=== PATIENT | female | born 1985 | race Caucasian/White ===

== ENCOUNTER 2017-07-07 01:43 | Emergency (ER) | payer OTHER ==
--- NOTE | 2017-07-07 02:25 | ED Physician Documentation ---
PD HPI FEMALE - Stated complaint Stated Complaint: FEMALE - Chief complaint Chief Complaint: General - History obtained from History obtained from: Patient, Family - History of Present Illness Timing - onset: Today Timing - details: Abrupt onset, Now resolved Associated symptoms: Vaginal bleeding [employer] History: G (1), P (1), Prior vag delivery Similar symptoms before: No diagnosis Recently seen: Not recently seen - Additional information Additional information: Patient is a 3 weeks post who is presenting to the emergency department for vaginal bleeding. Patient states that she had been passing clots , but tonight she passed a clot larger than before. Patient did not know if it was normal. Patient denies, dizziness, light headedness, syncope or pain. Review of Systems Constitutional: denies: Fever, Chills Eyes: denies: Decreased vision Ears: reports: Reviewed and negative Nose: denies: Epistaxis Throat: reports: Reviewed and negative Cardiac: denies: Chest pain / pressure, Palpitations Respiratory: reports: Reviewed and negative GI: denies: Abdominal Pain, Nausea, Vomiting : reports: Vaginal bleeding Skin: denies: Rash, Lesions Musculoskeletal: denies: Back pain, Extremity pain Neurologic: denies: Generalized weakness, Near syncope, Syncope, Headache Immunocompromised: denies: Immunocompromised PD PAST MEDICAL HISTORY - Allergies Allergies/Adverse Reactions: Allergies Allergy/AdvReac Type Severity Reaction Status Date / Time bee venom protein (honey bee) Allergy Anaphylaxis Verified 07/07/17 01:56 Latex, Natural Rubber Allergy Rash Verified 07/07/17 01:56 shellfish derived Allergy Anaphylaxis Verified 07/07/17 01:56 PD ED PE NORMAL - Vitals Vital signs reviewed: Yes - General General: Alert and oriented X 3, No acute distress - HEENT HEENT: Atraumatic, PERRL - Neck Neck: Supple, no meningeal sign - Respiratory Respiratory: No respiratory distress - Abdomen Abdomen: Soft, Non distended - Female Female : Pt declined - Derm Derm: Normal color, Warm and dry, No rash - Extremities Extremities: No deformity - Neuro Neuro: Alert and oriented X 3, No motor deficit, No sensory deficit, Normal speech - Psych Psych: Normal mood Results - Vitals Vitals: Vital Signs - 24 hr 07/07/17 01:48 Temperature 36.2 C L Heart Rate 92 Respiratory 18 Rate Blood Pressure 119/69 O2 Saturation 98 Oxygen O2 Source Room air PD MEDICAL DECISION MAKING - ED course Complexity details: reviewed old records, reviewed results, re-evaluated patient , considered differential, d/w patient, d/w family ED course: Patient was seen and examined at bedside. Patient was well appearing and in no distress. Patient's vital signs were within normal limits. Patient stated that she did not want blood work or a vaginal exam. she just wanted re- assurance. Patient required no further work up and was stable for discharge with outpatient follow up. Departure - Departure Disposition: Home, Self Care Clinical Impression: bleeding Condition: Good Instructions: Vaginal After Follow-Up: Primary,OB [Other] Comments: It is normal to have vaginal bleeding up to 4-6 weeks after delivery. You should follow up with your ob doctor on saturday to discuss further follow up care. You should return to the emergency department for syncope, dizziness, more than 5 pads a day, or filling a pad every 2 hours, or any other new, worsening or uncontrollable symptoms.
[2017-07-07 02:36] VITALS: BP 120/72
== END 2017-07-07 02:37 | disposition home or self-care (01) ==
LOC: ED 01:43
DX: O72.1 Other immediate postpartum hemorrhage (principal)
CPT/HCPCS: 99283

== ENCOUNTER 2017-11-06 22:18 | Emergency (ER) | payer OTHER ==
[2017-11-06 22:48] LABS: BASOPHILS % (AUTO) 0.3 %; EOSINOPHILS % (AUTO) 1.2 %; HGB - HEMOGLOBIN 12.6 g/dL (12.0-16.0); LYMPHOCYTES # (AUTO) 1.1 10^3/uL (1.5-3.5); MEAN CORPUSCULAR HEMOGLOBIN 28.5 pg (27.0-31.0); MEAN CORPUSCULAR HGB CONC 34.4 g/dL (32.0-36.0); MEAN CORPUSCULAR VOLUME 82.9 fL (81.0-99.0); MONOCYTES # (AUTO) 0.6 10^3/uL (0.0-1.0); MONOCYTES % (AUTO) 16.8 %; NEUTROPHILS # (AUTO) 1.9 10^3/uL (1.5-6.6); NEUTROPHILS % (AUTO) 50.7 %; PLT - PLATELET COUNT 242 10^3/uL (130-450); RED BLOOD COUNT 4.43 10^6/uL (4.20-5.40); RED CELL DISTRIBUTION WIDTH 13.4 % (12.0-15.0); WHITE BLOOD COUNT 3.7 x10^3/uL (4.8-10.8)
[2017-11-06 23:20] LABS: ALBUMIN 3.9 g/dL (3.2-5.5); ALBUMIN/GLOBULIN RATIO 1.2 (1.0-2.2); BILIRUBIN,TOTAL 0.5 mg/dL (0.2-1.0); CALCIUM 8.9 mg/dL (8.5-10.3); CREATININE 0.8 mg/dL (0.4-1.0); TOTAL PROTEIN 7.2 g/dL (6.7-8.2)
[2017-11-06 23:49] LABS: BILIRUBIN,URINE NEGATIVE (NEGATIVE); GLUCOSE, URINE (UA) NEGATIVE (NEGATIVE); KETONES,URINE (UA) 15 mg/dL (NEGATIVE); LEUKOCYTE ESTERASE, URINE TRACE (NEGATIVE); NITRITE,URINE NEGATIVE (NEGATIVE); OCCULT BLOOD,URINE SMALL (NEGATIVE); PROTEIN,URINE NEGATIVE (NEGATIVE); UROBILINOGEN,URINE 0.2 (NORMAL) E.U./dL (NORMAL)
[2017-11-06 23:53] LABS: CLARITY,URINE CLEAR (CLEAR); HCG UR QUAL NEGATIVE
[2017-11-06 23:58] LABS: BACTERIA,URINE Few /HPF (None Seen); SQUAMOUS EPITHELIAL CELL,UR FEW Squamous (<= Few)
[2017-11-07] MEDS ORDERED: POTASSIUM BICARB 25 MEQ TABLET PO STA (00:13)
[2017-11-07] MEDS ORDERED: PROMETHAZINE INJ 25 MG in SODIUM CHLORIDE 0.9% 50 ML IV STA (00:21)
[2017-11-07] MEDS ORDERED: SODIUM CHLORIDE 0.9% 1,000 ML IV ONE (00:21)
[2017-11-07] MEDS ORDERED: cefTRIAXone 1 GM in SODIUM CHLORIDE 0.9% MINIBAG 100 ML IV STA (00:22)
--- NOTE | 2017-11-07 00:22 | ED Physician Documentation ---
PD HPI NVD - Stated complaint Stated Complaint: ABD PX,DIARRHEA,VOMITING - Chief complaint Chief Complaint: Abd Pain - History obtained from History obtained from: Patient - History of Present Illness Timing - onset: How many days ago (5) Timing - duration: Days (5) Timing - details: Gradual onset, Still present Associated symptoms: Abdominal pain, Near syncope / syncope, Loss of appetite Improved by: Vomiting Similar symptoms before: Has not had sx before Recently seen: Not recently seen - Additonal information Additional information: 31-year-old female developed acute nausea vomiting diarrhea about 5 days ago. She has had persistence of this and Zofran has not been seeming to help very much. She has not been able to keep much in way of fluids down and she feels dehydrated. Review of Systems Constitutional: reports: Fever Eyes: denies: Decreased vision Ears: denies: Ear pain Nose: denies: Congestion Throat: denies: Sore throat Cardiac: denies: Chest pain / pressure, Palpitations Respiratory: denies: Dyspnea, Cough GI: reports: Abdominal Pain, Nausea, Vomiting, Diarrhea : denies: Dysuria, Frequency Skin: denies: Rash Musculoskeletal: denies: Neck pain, Back pain, Extremity pain Neurologic: reports: Generalized weakness. denies: Focal weakness, Numbness PD PAST MEDICAL HISTORY - Past Medical History Past Medical History: No - Past Surgical History Past Surgical History: Yes General: Appendectomy /[employer]: Oophrectomy - Present Medications Home Medications: Ambulatory Orders Medication Instructions Recorded Confirmed Ondansetron HCl [Zofran] 8 mg PO Q8HR PRN 11/06/17 11/06/17 Promethazine [Phenergan] 25 - 50 mg PO Q6H PRN #10 tab 11/07/17 Sulfamethoxazole/Trimethoprim 1 each PO BID #10 tablet 11/07/17 [Sulfamethoxazole-Tmp Ds Tablet] - Allergies Allergies/Adverse Reactions: Allergies Allergy/AdvReac Type Severity Reaction Status Date / Time bee venom protein (honey bee) Allergy Anaphylaxis Verified 07/07/17 01:56 Latex, Natural Rubber Allergy Rash Verified 07/07/17 01:56 shellfish derived Allergy Anaphylaxis Verified 07/07/17 01:56 - Social History Does the pt smoke?: No Smoking Status: Never smoker Does the pt drink ETOH?: No Does the pt have substance abuse?: No - Immunizations Immunizations are current?: Yes - POLST Patient has POLST: No PD ED PE NORMAL - Vitals Vital signs reviewed: Yes (hypertensive) - General General: Alert and oriented X 3, No acute distress, Well developed/nourished - HEENT HEENT: Atraumatic, PERRL, EOMI - Neck Neck: Supple, no meningeal sign - Cardiac Cardiac: RRR, No murmur - Respiratory Respiratory: No respiratory distress, Clear bilaterally - Abdomen Abdomen: Soft, Other (mild tendernes along the upper abdomen ) - Back Back: No CVA TTP, No spinal TTP - Derm Derm: Normal color, Warm and dry, No rash - Extremities Extremities: No deformity, No edema - Neuro Neuro: No motor deficit, No sensory deficit Eye Opening: Spontaneous Motor: Obeys Commands Verbal: Oriented GCS Score: 15 - Psych Psych: Normal mood, Normal affect Results - Vitals Vitals: Vital Signs - 24 hr 11/06/17 11/07/17 11/07/17 22:22 00:59 01:16 Temperature 36.2 C L Heart Rate 81 72 63 Respiratory 18 16 16 Rate Blood Pressure 141/72 H 105/62 109/61 O2 Saturation 100 99 100 11/07/17 11/07/17 01:49 02:23 Temperature 36.6 C Heart Rate 78 74 Respiratory 16 16 Rate Blood Pressure 110/68 102/58 L O2 Saturation 100 100 Oxygen O2 Source Room air - Labs Labs: Laboratory Tests 11/06/17 11/06/17 11/06/17 22:42 22:42 23:30 WBC 3.7 L RBC 4.43 Hgb 12.6 Hct 36.8 L MCV 82.9 MCH 28.5 MCHC 34.4 RDW 13.4 Plt Count 242 MPV 8.0 Neut # 1.9 Lymph # 1.1 L [place] # 0.6 Eos # 0.0 Baso # 0.0 Absolute Nucleated RBC 0.00 Nucleated RBC % 0.1 Sodium 136 Potassium 3.2 L Chloride 101 Carbon Dioxide 24 Anion Gap 11.0 BUN 8 Creatinine 0.8 Estimated GFR (MDRD) 84 L Glucose 113 H Calcium 8.9 Total Bilirubin 0.5 AST 23 ALT 25 Alkaline Phosphatase 87 Total Protein 7.2 Albumin 3.9 Globulin 3.3 Albumin/Globulin Ratio 1.2 Lipase 26 Urine Color YELLOW Urine Clarity CLEAR Urine pH 6.0 Ur Specific [place] 1.010 Urine Protein NEGATIVE Urine Glucose (UA) NEGATIVE Urine Ketones 15 H Urine Occult Blood SMALL H Urine Nitrite NEGATIVE Urine Bilirubin NEGATIVE Urine Urobilinogen 0.2 (NORMAL) Ur Leukocyte Esterase TRACE H Urine RBC 6-10 H Urine WBC 11-25 H Ur Squamous Epith Cells FEW Squamous Urine Bacteria Few Ur Microscopic Review INDICATED Urine Culture Comments INDICATED Urine HCG, Qual NEGATIVE Procedures - IVC sono (time) 0020 Bedside IVC sono: IVC measures (cm) (1.12), IVC collapsed c insp (cm) (0.52), Dehydration (est 1.5 liters deficit) PD MEDICAL DECISION MAKING - ED course Complexity details: reviewed old records, reviewed results, re-evaluated patient , considered differential, d/w patient ED course: 31-year-old female with a 5 day history of vomiting and diarrhea has become dehydrated she is administered normal saline 1/2 L and Phenergan intravenously. In addition she appears to have urinary tract infection she is given 1 g of Rocephin intravenously. Departure - Departure Disposition: 01 Home, Self Care Clinical Impression: Gastroenteritis, Dehydration Urinary tract infection Qualifiers: Urinary tract infection type: acute cystitis Hematuria presence: without hematuria Qualified Code(s): N30.00 - Acute cystitis without hematuria Condition: Good Instructions: ED Dehydration, ED UTI Cystitis Female, ED Gastroenteritis Viral Follow-Up: [facility] [Provider Group] Prescriptions: Promethazine [Phenergan] 25 - 50 mg PO Q6H PRN #10 tab PRN Reason: Nausea / Vomiting Sulfamethoxazole/Trimethoprim [Sulfamethoxazole-Tmp Ds Tablet] 1 each PO BID # 10 tablet Discharge Date/Time: 11/07/17 02:38
[2017-11-07] MEDS ORDERED: SODIUM CHLORIDE 0.9% 500 ML IV ONE (01:39)
[2017-11-07 02:26] VITALS: BP 102/58
== END 2017-11-07 02:38 | disposition home or self-care (01) ==
LOC: ED 22:18
DX: K52.9 Noninfective gastroenteritis and colitis, unspecified (principal); E86.0 Dehydration; N30.00 Acute cystitis without hematuria
CPT/HCPCS: 36415; 80053; 81001; 81025; 83690; 85025; 87086; 96361; 96365; 96367; 99284; A9270; J7040; 81003